=== PATIENT | male | born 1990 | race Caucasian/White ===

== ENCOUNTER 2025-06-06 11:47 | Outpatient (OUT) | payer BC, SELFPAY ==
--- OUTSIDE RECORDS SUMMARY | 2025-06-06 11:52 | XMS_ITS | Patient Health Record ---
Author Organization [facility] in [place] Address [address] [place] [address] Care Team Providers Care Group Care Worker Name Role Phone Wei Ricks Primary Care Provider [phone] Allergies No Known Allergies Reason For Referral No Information Social History Tobacco Use: Social History Observation Description Date Details (start date - stop date) Never Smoker NA - NA Tobacco Control (Standard) Question Answer Notes Tobacco use: Nonsmoker AUDIT-C (Standard) Question Answer Notes Did you have a drink contain ing alcohol in the past year? Yes How often did you have a dri nk containing alcohol in the past year? 2 to 3 times a week (3 points) How many drinks did you have on a typical day when you were drinking in the past year? 5 or 6 drinks (2 points) How often did you have six o r more drinks on one occasion in the past year? 2 to 3 times per week (3 points) Points 8 Interpretation Positive Problems Problem Type SNOMED Code ICD Code Onset Dates Problem Status W/U Status Risk Notes Problem Snoring (89402779) Snoring (R06.83) Active confirmed Problem Fatigue (R53.83) Active confirmed Problem Asthma (653181595) Asthma (J45.909) Active confirmed Problem Attention deficit hyperactivity disorder (682584149) ADHD (attention deficit hyperactivity disorder) (F90.9) Active confirmed Problem Well adult (245802533) Well adult (Z00.00) Active confirmed Vital Signs Blood pressure diastolic 90 mm Hg 06/06/2025 Height 69 in 06/06/2025 Blood pressure systolic 144 mm Hg 06/06/2025 Weight 281.1 lbs 06/06/2025 BMI 41.51 kg/m2 06/06/2025 Procedures Procedure Date Ordered Date Performed Result Body Sit e Sleep study - Diagnostic Polysonogram 06/06/2025 N/A Encounters Encounter Location Date Provider Diagnosis [facility] [address] [place] [address] 06/06/2025 Wei Ricks Well adult Z00.00 ; Snoring R06.83 and Fatigue R53.83 Assessments Encounter Date Diagnosis (ICD Code) Assessment Notes Treatment Notes Treatment Clinical Notes Section Notes 06/06/2025 Well adult (ICD-10 - Z00.00) 06/06/2025 Snoring (ICD-10 - R06.83) 06/06/2025 Fatigue (ICD-10 - R53.83) Plan Of Treatment Pending Test Test Name Order Date HEMOGLOBIN A1C (GLYCO) 06/06/2025 INSULIN, TOTAL 06/06/2025 LIPID PANEL (CHOL/TRIG/HDL/LDL) 06/06/20 Sleep study - Diagnostic Polysonogram THYROID PANEL (T4/TSH/FREE T3) CMP (COMP MET ARCE) w/eGFR CKD-EPI 2024 CBC WITH DIFF 06/06/2025 Insurance Providers Payer Name Payer Address Payer Phone Subscriber Number Group Number Insured Name Patient Relationship to Insured Coverage Start Date Coverage End Date ANTHEM ACCESS PPO PLUS LOCAL PLAN [address] [place] [address] [id number] Osorio Valle Self - patient is the insured Medical (General) History Medical History History ICD Code Asthma J45.909 ADHD (attention deficit hyperactivity di sorder) F90.9 Surgical History Surgery Date(Month/Year) denies Hospitalization History Reason Date(Month/Year) as a child for a virus
--- OUTSIDE RECORDS SUMMARY | 2025-06-06 11:52 | XMS_ITS | Clinical Summary ---
Author Organization [facility] Address [address] [place] [address], [address] [place] [address] Care Team Providers Care Packerhead Machine Operator Name Role Phone Kelli Henriquez APRN - YOHANA Primary Care Provider +[phone] Allergies No known active allergies Medications albuterol (PROVENTIL HFA) 108 (90 BASE) MCG/ACT inhaler Inhale 2 puffs into the lungs every 6 hours as needed for Wheezing. 1 Inhaler 0 06/23/2013 Active Social History Tobacco Use Types Packs/Day Years Used Date Smoking Tobacco: Never Alcohol Use Standard Drinks/Week Comments Yes 2 (1 standard drink = 0.6 oz pur e alcohol) Sex and Gender Information Value Date Recorded Sex Assigned at Not on file Legal Sex Male 6:44 PM EST Gender Identity Not on file Sexual Orientation Not on file Last Filed Vital Signs Vital Sign Reading Time Taken Comments Blood Pressure 142/97 12/23/2013 3:58 AM EDT Pulse 71 12/23/2013 3:58 AM EDT Temperature 35.7 C (96.3 F) 12/23/2013 3:58 AM EDT Respiratory Rate 14 12/23/2013 3:58 AM EDT Oxygen Saturation 99% 12/23/2013 3:58 AM EDT Inhaled Oxygen Concentration - - Weight 70.3 kg (155 lb) 06/23/2013 4:00 AM EDT Height 175.3 cm (5' 9 ) 06/23/2013 4:00 AM EDT Body Mass Index 22.89 06/23/2013 4:00 AM EDT Plan of Treatment Not on file Care Teams Packerhead Machine Operator Relationship Specialty Start Date End Date Kelli Henriquez APRN - NP [address] [place] [address] [facility] - General 06/23/13
[2025-06-06 12:14] LABS: Hematocrit 44.6 % (42.0-54.0); Hemoglobin 15.2 g/dL (14.0-18.0); Immature Granulocytes Abs Auto 0.01 10^3/uL (0.00-0.03); Immature Granulocytes Pct Auto 0.1 % (0.0-0.5); Lymphocytes Absolute Auto 2.3 10^3/uL (1.2-3.8); Mean Corpuscular HGB Conc 34.1 g/dL (29.9-35.2); Mean Corpuscular Hemoglobin 29.5 pg (25.9-34.0); Mean Corpuscular Volume 86.4 fL (80.0-94.0); Platelet Count 240 10^3/uL (150-450); Red Blood Count 5.16 10^6/uL (4.70-6.10); White Blood Count 6.8 10^3/uL (4.0-11.0)
[2025-06-06 12:52] LABS: Alanine Aminotransferase 184 U/L (16-63); Albumin Globulin Ratio 1.1; Albumin Level 4.0 g/dL (3.4-5.0); Alkaline Phosphatase 99 U/L (46-116); Anion Gap 12.2; Aspartate Amino Transferase 58 U/L (15-37); Blood Urea Nitrogen 15.0 mg/dL (7.0-18.0); Calcium 9.3 mg/dL (8.5-10.1); Carbon Dioxide 28.9 mmol/L (21.0-32.0); Chloride 103 mmol/L (98-107); Cholesterol 202 mg/dL (<=200); Estimated GFR (African America >60 (>=60 mL/min/1.73m^2); Estimated GFR (Non-African Ame >60 (>=60 mL/min/1.73m^2); Free T3 3.43 pg/mL (2.18-3.98); Globulin 3.7 g/dL; Glucose 92 mg/dL (74-106); HDL Cholesterol 52 mg/dL (40-60); Potassium 4.1 mmol/L (3.5-5.1); Sodium 140 mmol/L (136-145); Thyroid Stimulating Hormone 2.013 uIU/mL (0.358-3.740); Total Protein 7.7 g/dL (6.4-8.2); Triglycerides 66 mg/dL (<=150); VLDL CHOLESTEROL 13.2 mg/dL
== END 2025-06-06 11:48 | disposition home or self-care (01) ==
PROVIDERS: PCP Family Medicine; Visit Provider Family Medicine
DX: Z00.00 Encounter for general adult medical examination without abnormal findings (principal)
CPT/HCPCS: 36415; 80053; 80061; 83036; 83525; 84436; 84443; 84481; 85025

== ENCOUNTER 2025-06-08 17:40 | Outpatient (OUT) | payer BC, SELFPAY ==
--- NOTE | 2025-06-08 18:07 | US_ITS ---
[address] [address] Patient Name: DEWAYNE AUSTIN MRN: [id number] date: 1990 Sex: M Assigned Patient Location: US Current Patient Location: US Accession/Order Number: [id number] Exam Date: 06/08/2025 18:10 Report Date: 06/08/2025 21:45 At the request of: JASEN THAKKAR MD Procedure: US right upper quadrant Correction: Revised report LIMITED ABDOMINAL ULTRASOUND WITH ASSESSMENT OF RIGHT UPPER QUADRANT HISTORY: Elevated liver enzymes COMPARISON: None Negative ultrasound Reynoso's sign reported. COMMON BILE DUCT: Normal caliber. No intraluminal abnormality. LIVER CONTOUR: Normal. LIVER PARENCHYMA: Hepatic steatosis. Focal fatty sparing near gallbladder fossa. HEPATIC LESION: None INTRAHEPATIC BILIARY DUCTAL DILATATION No ductal dilatation identified. GALLSTONES: No shadowing gallstones. GALLBLADDER SLUDGE: No gallbladder sludge. GALLBLADDER WALL: No gallbladder wall thickening PERICHOLECYSTIC FLUID: None Pancreas: Unremarkable PORTAL VEIN: Normal blood flow. Liver size: Normal No RIGHT hydronephrosis identified. US/US right upper quadrant IMPRESSION: Hepatic steatosis. No biliary duct dilatation. Focal fatty sparing near gallbladder fossa. Unremarkable gallbladder.. Impression dictated by: Tucker Espino M.D. 06/08/2025 9:45 PM Dictation Location: [place] [address] Electronically authenticated by: [id number] Y Date: 06/08/2025 21:45
== END 2025-06-08 17:41 | disposition home or self-care (01) ==
PROVIDERS: PCP Family Medicine; Visit Provider Family Medicine
DX: G47.33 Obstructive sleep apnea (adult) (pediatric) (principal); R06.83 Snoring; R53.83 Other fatigue; R94.5 Abnormal results of liver function studies; K76.0 Fatty (change of) liver, not elsewhere classified
CPT/HCPCS: 76705; 95810

== ENCOUNTER 2025-06-15 19:52 | Outpatient (OUT) | payer BC, SELFPAY ==
--- OUTSIDE RECORDS SUMMARY | 2025-06-06 14:22 | XMS_ITS ---
Author Organization [facility] in [place] Address [address] [place] [address] Care Team Providers Care Director Music Name Role Phone Wei Ricks Primary Care Provider REASON FOR VISIT review labs Encounters Encounter Location Date Provider Diagnosis [facility] [address] [place] [address] 06/06/2025 Wei Ricks Elevated liver function tests R94.5 Assessments Encounter Date Diagnosis (ICD Code) Assessment Notes Treatment Notes Treatment Clinical Notes Section Notes 06/06/2025 Elevated liver function tests (ICD-10 - R94.5) Plan Of Treatment Pending Test Test Name Order Date CMP - Comprehensive Metabolic Panel 05/14 US Abdomen - Limited 06/06/2025 Progress Notes * NORMAN OsorioDOB: [birth year] (34 yo M)Acc No.[id number]:06/06/2025 Patient: Osorio HARRIS :1990 A ge:34 Y S ex:Male Address:[address] [place] [address], [address] Subjective: * Chief Complaints: * R eview labs * Medical History: * Surgical History: * Hospitalization/Major Diagno stic Procedure: * Medications: Objective: * Vitals: * Physical Examination: Assessment: * Assessment: 1. E levated liver function tests - R94.5 (Primary) Plan: * Treatment: * Procedure Codes: * true * Date: Generated for Printi ng/Eriberto/Kannan on: 0 06/15/2025 07:55 PM EDT
--- OUTSIDE RECORDS SUMMARY | 2025-06-09 08:46 | XMS_ITS ---
Author Organization [facility] in [place] Address [address] [place] [address] Care Team Providers Care Drafter (Cad) Electronic Name Role Phone Wei Ricks Primary Care Provider [phone] REASON FOR VISIT us Problems Problem Type SNOMED Code ICD Code Onset Dates Problem Status W/U Status Risk Notes Problem Fatty liver (718044517) Fatty liver (K76.0) Active confirmed Encounters Encounter Location Date Provider Diagnosis [facility] [address] [place] [address] 06/09/2025 Wei Ricks Elevated liver function tests R94.5 Assessments Encounter Date Diagnosis (ICD Code) Assessment Notes Treatment Notes Treatment Clinical Notes Section Notes 06/09/2025 Elevated liver function tests (ICD-10 - R94.5) Plan Of Treatment Pending Test Test Name Order Date COMPREHENSIVE METABOLIC PROFILE WITH GFR 06/09/2025 Progress Notes * Osorio AUSTINDOB: [birth year] (34 yo M)Acc No.[id number]:06/09/2025 Patient: Osorio HARRIS :1990 A ge:34 Y S ex:Male Address:[address] [place] [address], [address] Subjective: * Chief Complaints: * U s * Medical History: * Surgical History: * Hospitalization/Major Diagno stic Procedure: * Medications: Objective: * Vitals: * Physical Examination: Assessment: * Assessment: 1. E levated liver function tests - R94.5 (Primary) Plan: * Treatment: * Procedure Codes: * true * Date: Generated for Clifton hui/Eriberto/Kannan on: 0 06/15/2025 07:55 PM EDT
--- OUTSIDE RECORDS SUMMARY | 2025-06-15 19:56 | XMS_ITS | Patient Health Record ---
Author Organization [facility] in [place] Address [address] [place] [address] Care Team Providers Care Radiator Specialist Name Role Phone Wei Thakkar Primary Care Provider [phone] Allergies No Known Allergies Results Component Value Reference Range Notes CBC AUTO DIFF Reviewed date:06/06/2025 06:24:40 PM Interpretation: Performing Lab: Notes/Report: [facility] , White Blood Count 6.8 4.0-11.0 10 3/uL Red Blood Count 5.16 4.70-6.10 10 6/uL Hemoglobin 15.2 14.0-18.0 g/dL Hematocrit 44.6 42.0-54.0 % Mean Corpuscular Volume 86.4 80.0-94.0 fL Mean Corpuscular Hemoglobin 29.5 25.9-34.0 pg Mean Corpuscular HGB Conc 34.1 29.9-35.2 g/dL Red Cell Distribution Width 12.0 11.0-15.0 % Platelet Count 240 150-450 10 3/uL Mean Platelet Volume 11.7 9.5-13.5 fL Neutrophils Percent Auto 57.6 43.0-75.0 % Lymphocytes Percent Auto 33.8 20.5-60.0 % Monocytes Percent Auto 7.3 1.7-12.0 % Eosinophils Percent Auto 0.6 0.9-7.0 % Basophils Percent Auto 0.6 0.2-2.0 % Immature Granulocytes Pct Auto 0.1 0.0-0.5 % Neutrophils Absolute Auto 3.9 1.4-6.5 10 3/uL Lymphocytes Absolute Auto 2.3 1.2-3.8 10 3/uL Monocytes Absolute Auto 0.5 0.3-0.8 10 3/uL Eosinophils Absolute Auto 0.0 0.0-0.7 10 3/uL Basophils Absolute Auto 0.0 0.0-0.1 10 3/uL Immature Granulocytes Abs Auto 0.01 0.00-0.03 10 3/uL Performing Lab: see note - [facility] FREE T3 Reviewed date:06/06/2025 06:24:40 PM Interpretation: Performing Lab: Notes/Report: [facility] , Free T3 3.43 2.18-3.98 pg/mL Performing Lab: see note [facility] GLYCOHEMOGLOBIN A1C Reviewed date:06/06/2025 06:24:40 PM Interpretation: Performing Lab: Notes/Report: [facility] , Glycohemoglobin A1C 5.4 4.5-6.2 % ADA RECOMMENDED LIMIT 4.0 - 6.0 ADA THERAPEUTIC TARGET < 7.0 ACTION SUGGESTED > 7.0 Estimated Average Glucose 108 Performing Lab: see note [facility] INSULIN Reviewed date:06/07/2025 08:19:26 PM Interpretation: Performing Lab: Notes/Report: [facility] , Insulin 17.8 2.6-24.9 uIU/mL Performed at: [facility] [address] [id number] Structural Steel Painter: Que Butcher PhD, Phone: [phone] Performing Lab: see note [facility] LB LIPID PROFILE Reviewed date:06/06/2025 06:24:40 PM Interpretation: Performing Lab: Notes/Report: [facility] , Triglycerides 66 <=150 mg/dL Cholesterol 202 <=200 mg/dL HDL Cholesterol 52 40-60 mg/dL > or =60 mg/dl - LOW CARDIOVASCULAR RISK <40 mg/dl - HIGH CARDIOVASCULAR RISK LDL Cholesterol Calculated 137.0 <100 mg/dl OPTIMAL 100-129 mg/dl NEAR OR ABOVE OPTIMAL 130-159 mg/dl BORDERLINE HIGH 160-189 mg/dl HIGH >190 mg/dl VERY HIGH VLDL CHOLESTEROL 13.2 Chol HDL Ratio 3.9 3.3 - 4.4 LOW RISK 4.4 - 7.1 AVERAGE RISK 7.1 - 11.0 MODERATE RISK >11.0 HIGH RISK Performing Lab: see note ML - [facility] LB PROF 14(COMP METB) Reviewed date:06/06/2025 06:24:40 PM Interpretation: Performing Lab: Notes/Report: [facility] , Sodium 140 136-145 mmol/L Potassium 4.1 3.5-5.1 mmol/L Chloride 103 98-107 mmol/L Carbon Dioxide 28.9 21.0-32.0 mmol/L Anion Gap 12.2 Glucose 92 74-106 mg/dL Blood Urea Nitrogen 15.0 7.0-18.0 mg/dL Creatinine 1.09 0.70-1.30 mg/dL Estimated GFR ( Marva >60 >=60 mL/min/1.73m 2 Estimated GFR (Non- Linsey >60 >=60 mL/min/1.73m 2 BUN Creatinine Ratio 13.8 Calcium 9.3 8.5-10.1 mg/dL Bilirubin Total 0.6 0.2-1.0 mg/dL Aspartate Amino Transferase 58 15-37 U/L Alanine Aminotransferase 184 16-63 U/L Alkaline Phosphatase 99 46-116 U/L Total Protein 7.7 6.4-8.2 g/dL Albumin Level 4.0 3.4-5.0 g/dL Globulin 3.7 Albumin Globulin Ratio 1.1 Performing Lab: see note ML - [facility] LB T4 Reviewed date:06/06/2025 06:24:40 PM Interpretation: Performing Lab: Notes/Report: [facility] , T4 Thyroxine 7.80 4.50-12.10 ug/dL Performing Lab: see note ML - [facility] LB TSH Reviewed date:06/06/2025 06:24:40 PM Interpretation: Performing Lab: Notes/Report: [facility] , Thyroid Stimulating Hormone 2.013 0.358-3.740 uIU/mL Performing Lab: see note - [facility] LB US right upper quadrant Reviewed date:06/09/2025 12:47:56 PM Interpretation: Performing Lab: Notes/Report: Source Facility: [facility]-[address] [place] [address] [place] [address] Ultrasound Report Signed Patient: DEWAYNE AUSTIN MR#: [id number] : 1990 Acct:[id number] Age/Sex: 34 / M ADM Date: 06/08/25 Loc: US Attending Dr: Charly Thakkar M.D. Ordering Physician: Charly Thakkar M.D. Date of Service: 06/08/25 Procedure(s): US right upper quadrant Accession Number(s): [id number] cc: Charly Thakkar M.D. [place] [id number] Patient Name: DEWAYNE AUSTIN MRN: [id number] date: 1990 Sex: M Assigned Patient Location: US Current Patient Location: US Accession/Order Number: [id number] Exam Date: 06/08/2025 18:10 Report Date: 06/08/2025 21:45 At the request of: CHARLY THAKKAR MD Procedure: US right upper quadrant Correction: Revised report LIMITED ABDOMINAL ULTRASOUND WITH ASSESSMENT OF RIGHT UPPER QUADRANT HISTORY: Elevated liver enzymes COMPARISON: None Negative ultrasound Reynoso's sign reported. COMMON BILE DUCT: Normal caliber. No intraluminal abnormality. LIVER CONTOUR: Normal. LIVER PARENCHYMA: Hepatic steatosis. Focal fatty sparing near gallbladder fossa. HEPATIC LESION: None INTRAHEPATIC BILIARY DUCTAL DILATATION No ductal dilatation identified. GALLSTONES: No shadowing gallstones. GALLBLADDER SLUDGE: No gallbladder sludge. GALLBLADDER WALL: No gallbladder wall thickening PERICHOLECYSTIC FLUID: None Pancreas: Unremarkable PORTAL VEIN: Normal blood flow. Liver size: Normal No RIGHT hydronephrosis identified. US/US right upper quadrant IMPRESSION: Hepatic steatosis. No biliary duct dilatation. Focal fatty sparing near gallbladder fossa. Unremarkable gallbladder.. Impression dictated by: Tucker Espino M.D. 06/08/2025 9:45 PM Dictation Location: [place] [address] Electronically authenticated by: [id number] Y Date: 06/08/2025 21:45 Dictated By: Tucker Espino D.O. Signed By: 06/08/252146 DD/ 44 TD/TT: Senior Manufacturing Test Engineer: [place] [address] Ultrasound Report Signed Patient: DEWAYNE AUSTIN MR#: [id number] : 1990 Acct:[id number] Age/Sex: 34 / M ADM Date: 06/08/25 Loc: US Attending Dr: Perez Thakkar M.D. Ordering Physician: Charly Thakkar M.D. Date of Service: 06/08/25 Procedure(s): US rig ht upper quadrant Accession Number(s): [id number] cc: Charly Thakkar M.D. [address] [address] Patient Name: DEWAYNE AUSTIN MRN: [id number] date: 1990 Sex: M Assigned Patient Location: US Current Patient Location: US Accession/Order Numb er: [id number] Exam Date: 06/08/2025 18:10 Report Date: 06/08/2025 21:45 At the request of: CHARLY THAKKAR MD Procedure: US right upper quadrant Correction: Revised report LIMITED ABDOMINAL ULTRASOUND WITH ASSESSMENT OF RIGHT UPPER QUADRANT HISTORY: Elevated li martinez enzymes COMPARISON: None Negative ultrasound Reynoso's sign reported. COMMON BILE DUCT: Normal caliber. No intraluminal abnormality. LIVER CONTOUR: Normal. LIVER PARENCHYMA: Hepatic steatosis. Focal fatty sparing near gallbladder fossa. HEPATIC LESION: None INTRAHEPATIC BILIARY DUCTAL DILATATION No ductal dilatation identified. GALLSTONES: No shadowing gallstones. GALLBLADDER SLUDGE: No gallbladder sludge. GALLBLADDER WALL: No gallbladder wall thickening PERICHOLECYSTIC FLUI D: None Pancreas: Unremarkable PORTAL VEIN: Normal blood flow. Liver size: Normal No RIGHT hydronephro sis identified. US/US right upper quadrant IMPRESSION: Hepatic steatosis. No biliary duct dilatation. Focal fatty sparing near gallbladder fossa. Unremarkable gallbladder.. Impression dictated by: Tucker Espino M.D. 06/08/2025 9:45 PM Dictation Location: [place] [address] Electronically authenticated by: [id number] Y Date: 06/08/2025 21:45 Dictated By: Tucker Espino D.O. Signed By: 06/08/252146 DD/ 44 TD/TT: Senior Manufacturing Test Engineer: Reason For Referral No Information Social History [...] Status W/U Status Risk Notes Problem Snoring (86331054) Snoring (R06.83) Active confirmed Problem Fatigue (92301661) Fatigue (R53.83) Active confirmed Problem Asthma (388954952) Asthma (J45.909) Active confirmed Problem Attention deficit hyperactivity disorder (368333515) ADHD (attention deficit hyperactivity disorder) (F90.9) Active confirmed Problem Fatty liver (146947734) Fatty liver (K76.0) Active confirmed Problem Well adult (663886991) Well adult (Z00.00) Active confirmed Vital Signs Blood pressure diastolic 90 mm Hg 06/06/2025 Height 69 in 06/06/2025 Blood pressure systolic 144 mm Hg 06/06/2025 Weight 281.1 lbs 06/06/2025 BMI 41.51 kg/m2 06/06/2025 Procedures Procedure Date Ordered Date Performed Result Body Sit e Sleep study - Diagnostic Polysonogram 06/06/2025 N/A Encounters Encounter Location Date Provider Diagnosis [place] [address] [place] [address] 06/06/2025 Wei Hoy Elevated liver function tests R94.5 [place] [address] [place] [address] 06/09/2025 Wei Hoy Elevated liver function tests R94.[address] [address] 06/06/2025 Wei Hoy Well adult Z00.00 ; Snoring R06.83 and Fatigue R53.83 Assessments Encounter Date Diagnosis (ICD Code) Assessment Notes Treatment Notes Treatment Clinical Notes Section Notes 06/06/2025 Well adult (ICD-10 - Z00.00) 06/06/2025 Snoring (ICD-10 - R06.83) 06/06/2025 Elevated liver function tests (ICD-10 - R94.5) 06/09/2025 Elevated liver function tests (ICD-10 - R94.5) 06/06/2025 Fatigue (ICD-10 - R53.83) Plan Of Treatment Pending Test Test Name Order Date HEMOGLOBIN A1C (GLYCO) 06/06/2025 INSULIN, TOTAL 06/06/2025 LIPID PANEL (CHOL/TRIG/HDL/LDL) 06/06/20 Sleep study - Diagnostic Polysonogram COMPREHENSIVE METABOLIC PROFILE WITH GFR 06/09/2025 CMP - Comprehensive Metabolic Panel 05/14 US Abdomen - Limited 06/06/2025 THYROID PANEL (T4/TSH/FREE T3) CMP (COMP MET ARCE) w/eGFR CKD-EPI 2024 CBC WITH DIFF 06/06/2025 Insurance Providers Payer Name Payer Address Payer Phone Subscriber Number Group Number Insured Name Patient Relationship to Insured Coverage Start Date Coverage End Date ANTHEM ACCESS PPO PLUS LOCAL PLAN [address] [place] [phone] [id number] Dewayne Austin Self - patient is the insured Medical (General) History Medical History History ICD Code Asthma J45.909 ADHD (attention deficit hyperactivity di sorder) F90.9 Surgical History Surgery Date(Month/Year) denies Hospitalization History Reason Date(Month/Year) as a child for a virus
--- OUTSIDE RECORDS SUMMARY | 2025-06-15 19:56 | XMS_ITS | Clinical Summary ---
Author Organization [facility] Address [address] [place] [address], [address] [place] [address] Care Team Providers Care Tracer Powder Blender Name Role Phone Kelli Henriquez APRN - YOHANA Primary Care Provider +1 [phone] Allergies No known active allergies Medications albuterol [...] of Treatment Not on file Care Teams Tracer Powder Blender Relationship Specialty Start Date End Date Kelli Henriquez APRN - NP [address] [place] [address] [facility] - General 06/23/13
== END 2025-06-15 19:53 | disposition home or self-care (01) ==
LOC: SLEEP 19:54
PROVIDERS: PCP Family Medicine; Visit Provider Family Medicine
DX: G47.33 Obstructive sleep apnea (adult) (pediatric) (principal)
CPT/HCPCS: 95811

== ENCOUNTER 2025-09-02 13:44 | Outpatient (OUT) | payer BC, SELFPAY ==
--- OUTSIDE RECORDS SUMMARY | 2025-09-02 13:48 | XMS_ITS | Clinical Summary ---
Author Organization [facility] Address [address] [place] [address], [address] [place] [address] Care Team Providers Care Degree Clerk Name Role Phone Desireemalcolm Kelli Potts APRN - CAMERA STORAGE CLERK Primary Care Provider +1 [phone] Allergies No known active allergies Medications MedicationSigDispense QuantityRefillsLast FilledStart DateEnd DateStatus albuterol (PROVENTIL HFA) 108 (90 BASE) MCG/ACT inhaler Inhale 2 puffs into the lungs every 6 hours as needed for Wheezing. 1 Inhaler ctive Social History Tobacco UseTypesPacks/DayYears UsedDateSmoking Tobacco: NeverAlcohol UseStandard Drinks/WeekCommentsYes2 (1 standard drink = 0.6 oz pure alcohol)Sex and Gender InformationValueDate RecordedSex Assigned at BirthNot on fileLegal SexMale 11/22/2012 6:44 PM ESTGender IdentityNot on fileSexual OrientationNot on file Last Filed Vital Signs Vital SignReadingTime TakenCommentsBlood Zkurdgga101/9703 3:58 AM EDT Xahkv6845 3:58 AM WNVHlmqtrxmagm86.7 ??C (96.3 ??F)12/23/2013 3:58 AM EDTRespiratory Arcm8536 3:58 AM EDTOxygen Fhsdksrghx98%12/23/2013 3:58 AM EDTInhaled Oxygen Concentration--Nsckka78.3 kg (155 lb)06/23/2013 4:00 AM EDT Xhiidi116.3 cm (5' 9 )06/23/2013 4:00 AM EDTBody Mass Index22.8906/23/2013 4:00 AM EDT Plan of Treatment Not on file Care Teams Team MemberRelationshipSpecialtyStart DateEnd Date Kelli Henriquez, MACHINE INSTALLER - CAMERA STORAGE CLERK [address] [place] [id number] PCP - General06/23/13
--- OUTSIDE RECORDS SUMMARY | 2025-09-02 13:48 | XMS_ITS | Patient Health Record ---
Author Organization [facility] [place] Address [address] [place] [address] Care Team Providers Care Business Specialist Name Role Phone Wei Thakkar Primary Care Provider Allergies No Known Allergies Results Component Value Reference Range Notes CBC AUTO DIFF Reviewed date:06/06/2025 06:24:40 PM Interpretation: Performing Lab: Notes/Report: [facility] , White Blood Count 6.8 4.0-11.0 10 3/uL Red Blood Count5.164.70-6.10 10 6/iUVikbfefvda34.214.0-18.0 g/hVTcbifngarm93.6 42.0-54.0 %Mean Corpuscular Wgenlz62.480.0-94.0 fLMean Corpuscular Hemoglobin 29.525.9-34.0 pgMean Corpuscular HGB Conc34.129.9-35.2 g/dLRed Cell Distribution Width12.011.0-15.0 %Platelet Fpwjw972402-206 10 3/uLMean Platelet Gpbcyh23.79.5- 13.5 fLNeutrophils Percent Auto57.643.0-75.0 %Lymphocytes Percent Auto33.820.5- 60.0 %Monocytes Percent Auto7.31.7-12.0 %Eosinophils Percent Auto0.60.9-7.0 % Basophils Percent Auto0.60.2-2.0 %Immature Granulocytes Pct Auto0.10.0-0.5 % Neutrophils Absolute Auto3.91.4-6.5 10 3/uLLymphocytes Absolute Auto2.31.2-3.8 10 3/uLMonocytes Absolute Auto0.50.3-0.8 10 3/uLEosinophils Absolute Auto0.00.0- 0.7 10 3/uLBasophils Absolute Auto0.00.0-0.1 10 3/uLImmature Granulocytes Abs Auto0.010.00-0.03 10 3/uLPerforming Lab:see note - [facility] FREE T3 Reviewed date:06/06/2025 06:24:40 PM Interpretation: Performing Lab: Notes/Report: [facility] ,Free T33.432.18-3.98 pg/mLPerforming Lab:see [facility] GLYCOHEMOGLOBIN A1C Reviewed date:06/06/2025 06:24:40 PM Interpretation: Performing Lab: Notes/Report: [facility] ,Glycohemoglobin A1C5.44.5-6.2 % ADA RECOMMENDED LIMIT 4.0 - 6.0 ADA THERAPEUTIC TARGET < 7.0 ACTION SUGGESTED > 7.0 Estimated Average Locdfwp738Rrqwjlrglg Lab:see [facility] INSULIN Reviewed date:06/07/2025 08:19:26 PM Interpretation: Performing Lab: Notes/Report: [facility] ,Baoymdj69.82.6-24.9 uIU/mL Performed at: [facility] Lab[address] [id number] Seismology Technical Officer: Que Butcher PhD, Phone: [phone] Performing Lab:[facility] LBLIPID PROFILE Reviewed date:06/06/2025 06:24:40 PM Interpretation: Performing Lab: Notes/Report: [facility] ,Hjdfnzanlqqdi06<=150 mg/cVOpfesjliqjk432<=200 mg/dLHDL Jdrfjuqlspu9273-98 mg/dL > or =60 mg/dl - LOW CARDIOVASCULAR RISK <40 mg/dl - HIGH CARDIOVASCULAR RISK LDL Cholesterol Qyvcftrnxd651.0 <100 mg/dl OPTIMAL 100-129 mg/dl NEAR OR ABOVE OPTIMAL 130-159 mg/dl BORDERLINE HIGH 160-189 mg/dl HIGH >190 mg/dl VERY HIGH VLDL KOGVJHLOBEK30.2Chol HDL Ratio3.9 3.3 - 4.4 LOW RISK 4.4 - 7.1 AVERAGE RISK 7.1 - 11.0 MODERATE RISK >11.0 HIGH RISK Performing Lab:see noteML - [facility] LBPROF 14(COMP METB) Reviewed date:06/06/2025 06:24:40 PM Interpretation: Performing Lab: Notes/Report: [facility] ,Maeimd150736-930 mmol/LPotassium4.13.5-5.1 mmol/YWjfbrmkq03508-269 mmol/LCarbon Aiyxjcq24.921.0-32.0 mmol/LAnion Gap12.4Vqmlmfd0602-675 mg/dLBlood Urea Nitrogen 15.07.0-18.0 mg/dLCreatinine1.090.70-1.30 mg/dLEstimated GFR ( Marva>60 >=60 mL/min/1.73m 2Estimated GFR (Non- Linsey>60>=60 mL/min/1.73m 2BUN Creatinine Ratio13.0Hbgiavx2.38.5-10.1 mg/dLBilirubin Total0.60.2-1.0 mg/dL Aspartate Amino Pajgtxwitcq9418-24 U/LAlanine Mjdafwoybcpcgrzq07221-54 U/L Alkaline Ebqtmjimkut4490-470 U/LTotal Protein7.76.4-8.2 g/dLAlbumin Level4.03.4- 5.0 g/dLGlobulin3.7Albumin Globulin Ratio1.1Performing Lab:see noteML - [facility] LBT4 Reviewed date:06/06/2025 06:24:40 PM Interpretation: Performing Lab: Notes/Report: [facility] ,T4 Thyroxine7.804.50-12.10 ug/dLPerforming Lab:see noteML - [facility] LBTSH Reviewed date:06/06/2025 06:24:40 PM Interpretation: Performing Lab: Notes/Report: [facility] ,Thyroid Stimulating Hormone2.0130.358-3.740 uIU/mLPerforming Lab:see noteML - [facility] LBUS right upper quadrant Reviewed date:06/09/2025 12:47:56 PM Interpretation: Performing Lab: Notes/Report: Source Facility: [facility] [address] Ultrasound Report Signed Patient: DEWAYNE AUSTIN MR#: [id number] : 1990 Acct:[id number] Age/Sex: 34 / M ADM Date: 06/08/25 Loc: US Attending Dr: Charly Thakkar M.D. Ordering Physician: Charly Thakkar M.D. Date of Service: 06/08/25 Procedure(s): US right upper quadrant Accession Number(s): [id number] cc: Charly Thakkar M.D. [place] [address] Patient Name: DEWAYNE AUSTIN MRN: [id number] date: 1990 Sex: M Assigned Patient Location: [place] Current Patient Location: [place] Accession/Order Number: [id number] Exam Date: 06/08/2025 18:10 Report Date: 06/08/2025 [...] Espino M.D. 06/08/2025 9:45 PM Dictation Location: [place] [address] Electronically authenticated by: [id number] Y Date: 06/08/2025 21:45 Dictated By: Tucker Espino D.O. 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 Yes How often did you have a drink containing alcohol in the past year?2 to 3 times a week (3 points)How many drinks did you have on a typical day when you were drinking in the past year?5 or 6 drinks (2 points)How often did you have six or more drinks on one occasion in the past year?2 to 3 times per week (3 points) Pyclpz9PqwofadrzkuounMivaoufn Problems Problem Type SNOMED Code ICD Code Onset Dates Problem Status W/U Status Risk Notes Problem Snoring (99258912) Snoring (R06.83) ActiveconfirmedProblemFatigue (59856469)Fatigue (R53.83)ActiveconfirmedProblem Asthma (697524897)Asthma (J45.909)ActiveconfirmedProblemAttention deficit hyperactivity disorder (764936353)ADHD (attention deficit hyperactivity disorder) (F90.9)ActiveconfirmedProblemFatty liver (367061933)Fatty liver (K76.0)ActiveconfirmedProblemWell adult (128062881)Well adult (Z00.00)Active confirmed Vital Signs Blood pressure diastolic 90 mm Hg 06/06/2025 Sqtqrv69 in06/06/2025lood pressure cccevaum294 mm Hg06/06/20253858Owxlmk998.1 lbs 06/06/2025BMI41.51 kg/m206/06/2025 Procedures Procedure Date Ordered Date Performed Result Body Sit e Sleep study - Diagnostic Polysonogram 06/06/2025 N/A Encounters Encounter Location Date Provider Diagnosis [facility] [address] [place] [address] 06/06/2025 Wei Thakkar Well adult Z00.00 ; Snoring R06.83 and Fatigue R53.83 [facility] [address] [place] [address] 06/06/2025 Wei Thakkar Elevated liver function tests R94.5 [place] [address] [place] [address] 06/09/2025 Wei Thakkar Elevated liver function tests R94.5 Assessments Encounter Date Diagnosis (ICD Code) Assessment Notes Treatment Notes Treatment Clinical Notes Section Notes 06/06/2025 Well adult (ICD-10 - Z00.00) 06/06/2025Snoring (ICD-10 - R06.83)06/06/2025Elevated liver function tests (ICD- 10 - R94.5)06/09/2025Elevated liver function tests (ICD-10 - R94.5)06/06/2025 Fatigue (ICD-10 - R53.83) Plan Of Treatment [...] ACCESS PPO PLUS LOCAL PLAN [id number] [place] [id number] Haley Austin - patient is the insured Medical (General) History Medical History History ICD Code Asthma J45.909 ADHD (attention deficit hyperactivity di sorder) F90.9 Surgical History Surgery Date(Month/Year) denies Hospitalization History Reason Date(Month/Year) as a child for a virus
== END 2025-09-02 13:45 | disposition home or self-care (01) ==
LOC: FHNEUROLOG 13:44
PROVIDERS: PCP Family Medicine; Visit Provider Psychiatry & Neurology Neurology
DX: G47.33 Obstructive sleep apnea (adult) (pediatric) (principal); R09.02 Hypoxemia
CPT/HCPCS: G0463